=== PATIENT | male | born 1970 | race African-American/Black ===

== ENCOUNTER 2018-11-25 07:48 | Emergency (ER) | payer OTHER ==
[~2018-11-25] VITALS: Ht 182.9 cm; Wt 72.0 kg
[2018-11-25 07:50] VITALS: BP 107/61
== END 2018-11-25 11:39 | disposition left against medical advice (07) ==
LOC: ER 07:48
DX: H05.222 Edema of left orbit (principal); Y08.89XA Assault by other specified means, initial encounter; F17.200 Nicotine dependence, unspecified, uncomplicated
CPT/HCPCS: 99283

== ENCOUNTER 2018-12-01 23:37 | Emergency (ER) | payer OTHER ==
[~2018-12-01] VITALS: Ht 172.7 cm; Wt 73.0 kg
[2018-12-01 23:40] VITALS: BP 142/84
== END 2018-12-02 08:06 | disposition left against medical advice (07) ==
LOC: ER 23:37
DX: Z53.21 Procedure and treatment not carried out due to patient leaving prior to being seen by health care provider (principal); F17.200 Nicotine dependence, unspecified, uncomplicated

== ENCOUNTER 2019-12-13 19:58 | Inpatient (IN) | payer MEDICAID, OTHER ==
[~2019-12-13] VITALS: Ht 172.7 cm; Wt 74.8 kg
[2019-12-13] MEDS ORDERED: ASPIRIN 81MG TABLET PO ONE (22:45)
[2019-12-13 23:13] LABS: BASOPHILS % 0.9 % (0.0-2.0); EOSINOPHILS % 1.2 % (0.0-5.0); HEMATOCRIT. 38.2 % (42.0-52.0); HEMOGLOBIN. 12.6 g/dL (14.0-18.0); LYMPHOCYTES % 37.2 % (20.0-50.0); MEAN CORPUSCULAR HEMOGLOBIN 28.2 pg (28.0-32.0); MEAN CORPUSCULAR VOLUME 85.4 fL (80.0-94.0); MONOCYTES % 9.6 % (2.0-8.0); NEUTROPHILS % 51.1 % (40.0-76.0); PLATELET 472 x1000/uL (130-400); RED BLOOD CELL COUNT 4.48 mill/uL (4.7-6.1); RED CELL DISTRIBUTION WIDTH 19.5 % (11.6-14.6)
[2019-12-13 23:17] LABS: CHLORIDE 99 mEq/L (98-107)
[2019-12-14 10:00] VITALS: BP 106/83
[2019-12-14] MEDS ORDERED: HYDROCODONE/ACETAMINOPHEN 5/325MG TABLET PO PRN ×2 (10:00→15:15)
[2019-12-14] MEDS ORDERED: ONDANSETRON HCL 4MG/2ML INJ IV PRN (10:00)
[2019-12-14] MEDS ORDERED: ENOXAPARIN 40MG/0.4ML SYR SUBCUT SCH (10:15)
[2019-12-14 10:33] VITALS: BP 106/83
[2019-12-14] MEDS ORDERED: ATOR40TA70 PO (11:03)
[2019-12-14] MEDS ORDERED: LISI-186 PO (11:04)
[2019-12-14] MEDS ORDERED: AMIO100T4 PO (11:06)
[2019-12-14] MEDS ORDERED: CARV6.2548 PO (11:06)
[2019-12-14] MEDS ORDERED: ASPI-1497 PO (11:06)
[2019-12-14 12:00] VITALS: BP 121/75
[2019-12-14 12:13] LABS: BASOPHILS % 0.3 % (0.0-2.0); EOSINOPHILS % 1.4 % (0.0-5.0); HEMATOCRIT. 34.7 % (42.0-52.0); HEMOGLOBIN. 11.3 g/dL (14.0-18.0); MEAN CORPUSCULAR HEMOGLOBIN 27.7 pg (28.0-32.0); MEAN CORPUSCULAR VOLUME 84.9 fL (80.0-94.0); MEAN PLATELET VOLUME 6.9 fl (7.4-10.4); MONOCYTES % 10.8 % (2.0-8.0); NEUTROPHILS % 60.5 % (40.0-76.0); PLATELET 445 x1000/uL (130-400); RED BLOOD CELL COUNT 4.08 mill/uL (4.7-6.1); RED CELL DISTRIBUTION WIDTH 19.3 % (11.6-14.6)
[2019-12-14 12:28] LABS: CHLORIDE 103 mEq/L (98-107)
[2019-12-14 12:37] LABS: T4 FREE 1.11 ng/dL (0.76-1.46)
[2019-12-14] MEDS ORDERED: DIPHENHYDRAMINE 50MG/ML VIAL IV PRN (15:15)
[2019-12-14] MEDS ORDERED: ACETAMINOPHEN 325MG TABLET PO PRN (15:15)
[2019-12-14] MEDS ORDERED: ACETAMINOPHEN 650MG SUPP PR PRN (15:15)
[2019-12-14] MEDS ORDERED: IPRATROPIUM/ALBUTEROL 0.5-3(2.5)MG/3ML NEB HHN PRN (15:15)
[2019-12-14] MEDS ORDERED: DOCUSATE SODIUM 100MG CAPSULE PO PRN (15:15)
[2019-12-14] MEDS ORDERED: LORAZEPAM 2MG/ML CPJ IV PRN (15:15)
[2019-12-14] MEDS ORDERED: HYDRALAZINE 20MG/ML VIAL IV PRN (15:15)
[2019-12-14] MEDS ORDERED: CLONIDINE 0.1MG TABLET PO PRN (15:15)
[2019-12-14 15:39] LABS: CREATINE KINASE 392 IU/L (39-308)
[2019-12-14] MEDS ORDERED: MEDICATION NOT ON FORMULARY EA (Amiodarone HCl 200 MG) PO SCH (17:00)
[2019-12-14] MEDS: AMIODARONE HCL 200 MG TABLET PO SCH (17:20)
[2019-12-14 20:00] VITALS: BP_SYST 119; BP_SYST 125; BP_SYST 136; BP_DIAS 81; BP_DIAS 82; BP_DIAS 89
[2019-12-14] MEDS: CARVEDILOL 6.25 MG TABLET PO SCH (21:38)
[2019-12-14] MEDS: FAMOTIDINE 20MG TABLET PO SCH (21:38)
[2019-12-14 23:26] LABS: CREATINE KINASE 315 IU/L (39-308)
[2019-12-14 23:27] LABS: CREATINE KINASE MB FRACTION 1.1 ng/mL (0.5-3.6)
[2019-12-15] VITALS: BP 126/83
[2019-12-15 04:00] VITALS: BP 157/84
[2019-12-15 06:20] LABS: BASOPHILS % 0.5 % (0.0-2.0); EOSINOPHILS % 1.5 % (0.0-5.0); HEMATOCRIT. 35.8 % (42.0-52.0); HEMOGLOBIN. 11.6 g/dL (14.0-18.0); LYMPHOCYTES % 31.2 % (20.0-50.0); MEAN CORPUSCULAR HEMOGLOBIN 27.9 pg (28.0-32.0); MEAN CORPUSCULAR VOLUME 85.6 fL (80.0-94.0); MEAN PLATELET VOLUME 7.2 fl (7.4-10.4); MONOCYTES % 14.2 % (2.0-8.0); NEUTROPHILS % 52.6 % (40.0-76.0); PLATELET 436 x1000/uL (130-400); RED BLOOD CELL COUNT 4.18 mill/uL (4.7-6.1); RED CELL DISTRIBUTION WIDTH 19.5 % (11.6-14.6)
[2019-12-15 06:35] LABS: CHLORIDE 106 mEq/L (98-107)
[2019-12-15 06:50] LABS: HDL CHOLESTEROL 52 mg/dL (40-59); TOTAL IRON BINDING CAPACITY 448 ug/dL (250-450)
[2019-12-15 06:52] LABS: LDL CHOLESTEROL 68 mg/dL (5-100)
[2019-12-15 08:00] VITALS: BP 128/80
[2019-12-15] MEDS: ATORVASTATIN CALCIUM 40MG TABLET PO SCH (09:05)
[2019-12-15] MEDS: AMIODARONE HCL 200 MG TABLET PO SCH ×2 (09:05→16:54)
[2019-12-15] MEDS: ASPIRIN 81MG EC TABLET PO SCH (09:06)
[2019-12-15] MEDS: CARVEDILOL 6.25 MG TABLET PO SCH ×2 (09:06→20:21)
[2019-12-15 12:00] VITALS: BP 112/74
[2019-12-15] MEDS ORDERED: IOHEXOL-350 100 ML BOTTLE ONE (14:21)
[2019-12-15 16:00] VITALS: BP 112/83
[2019-12-15] MEDS: FERROUS SULFATE 325MG TABLET PO SCH (16:54)
[2019-12-15 17:41] LABS: *AMPHETAMINES SCREEN URINE NEGATIVE (NEGATIVE); *BARBITURATES SCREEN URINE NEGATIVE (NEGATIVE); *BENZODIAZEPINES SCREEN URINE NEGATIVE (NEGATIVE); *COCAINE SCREEN URINE NEGATIVE (NEGATIVE); METHADONE URINE SCREEN NEGATIVE (NEGATIVE)
[2019-12-15 17:42] LABS: CANNABINOID URINE SCREEN PRESUMTIVE POSITIVE (NEGATIVE); OPIATES URINE SCREEN NEGATIVE (NEGATIVE); PHENCYCLIDINE URINE SCREEN PRESUMTIVE POSITIVE (NEGATIVE)
[2019-12-15 20:00] VITALS: BP_SYST 123; BP_SYST 125; BP_SYST 138; BP_DIAS 79; BP_DIAS 82; BP_DIAS 88
[2019-12-15] MEDS: FAMOTIDINE 20MG TABLET PO SCH (20:21)
[2019-12-16] VITALS (8 sets, daily range): BP systolic 106–146; BP diastolic 68–117
[2019-12-16] MEDS: FERROUS SULFATE 325MG TABLET PO SCH ×3 (06:38→17:27)
[2019-12-16 06:53] LABS: BASOPHILS % 0.7 % (0.0-2.0); CHLORIDE 103 mEq/L (98-107); EOSINOPHILS % 2.7 % (0.0-5.0); HEMATOCRIT. 37.2 % (42.0-52.0); HEMOGLOBIN. 12.2 g/dL (14.0-18.0); LYMPHOCYTES % 43.1 % (20.0-50.0); MEAN CORPUSCULAR HEMOGLOBIN 28.1 pg (28.0-32.0); MEAN CORPUSCULAR VOLUME 85.8 fL (80.0-94.0); MEAN PLATELET VOLUME 7.6 fl (7.4-10.4); MONOCYTES % 10.3 % (2.0-8.0); NEUTROPHILS % 43.2 % (40.0-76.0); PLATELET 450 x1000/uL (130-400); RED BLOOD CELL COUNT 4.34 mill/uL (4.7-6.1); RED CELL DISTRIBUTION WIDTH 19.5 % (11.6-14.6)
[2019-12-16] MEDS: AMIODARONE HCL 200 MG TABLET PO SCH ×2 (09:18→17:27)
[2019-12-16] MEDS: CARVEDILOL 6.25 MG TABLET PO SCH ×2 (09:18→20:50)
[2019-12-16] MEDS: ASPIRIN 81MG EC TABLET PO SCH (09:18)
[2019-12-16] MEDS: ATORVASTATIN CALCIUM 40MG TABLET PO SCH (09:18)
[2019-12-16] MEDS: FAMOTIDINE 20MG TABLET PO SCH (20:50)
== END 2019-12-16 21:05 | disposition home or self-care (01) | DRG 48 ==
LOC: ER 19:58 → EDBEDREQ 12-14 01:55 → EDBEDREQTM 12-14 01:55 → 5WST 12-14 02:19 → EDBEDREQTM 12-14 02:21 → EDBEDREQ 12-14 02:21 → ENRESERV 12-14 07:44
PROVIDERS: ADMIT Internal Medicine; ATTEND Internal Medicine
DX: G90.8 Other disorders of autonomic nervous system (principal); I11.0 Hypertensive heart disease with heart failure; I42.9 Cardiomyopathy, unspecified; I50.42 Chronic combined systolic (congestive) and diastolic (congestive) heart failure; D50.9 Iron deficiency anemia, unspecified; E78.5 Hyperlipidemia, unspecified; I45.10 Unspecified right bundle-branch block; J44.9 Chronic obstructive pulmonary disease, unspecified
CPT/HCPCS: 36415; 70486; 71045; 71275; 73130; 80048; 80053; 80061; 80305; 80307; 82550; 82553; 83540; 83550; 83735; 83880; 84439; 84443; 84484; 85025; 85379; 93005; 93306; 93880; 93970; 99285; Q9967

== ENCOUNTER 2020-11-20 16:21 | Emergency (ER) | payer MEDICAID, OTHER ==
[~2020-11-20] VITALS: Ht 177.8 cm; Wt 82.0 kg
[~2020-11-20 16:21] MED LIST: AMIO100T4 PO; ASPI-1497 PO; ATOR40TA70 PO; CARV6.2548 PO; LISI-186 PO
[2020-11-20] MEDS ORDERED: SODIUM CHLORIDE 0.9% 1,000 ML IV ONE (17:15)
[2020-11-20 17:29] LABS: BASOPHILS % 0.5 % (0.0-2.0); HEMATOCRIT. 36.7 % (42.0-52.0); HEMOGLOBIN. 11.6 g/dL (14.0-18.0); LYMPHOCYTES % 44.2 % (20.0-50.0); MEAN CORPUSCULAR HEMOGLOBIN 26.2 pg (28.0-32.0); MEAN PLATELET VOLUME 7.7 fl (7.4-10.4); MONOCYTES % 7.4 % (2.0-8.0); NEUTROPHILS % 45.9 % (40.0-76.0); PLATELET 472 x1000/uL (130-400); RED BLOOD CELL COUNT 4.43 mill/uL (4.7-6.1); RED CELL DISTRIBUTION WIDTH 19.7 % (11.6-14.6)
[2020-11-20 17:33] LABS: CHLORIDE 103 mEq/L (98-107)
[2020-11-20 17:38] LABS: ETHANOL BLOOD 130 mg/dL
[2020-11-20 19:19] LABS: CLARITY URINE CLEAR (CLEAR); COLOR URINE YELLOW (YELLOW); KETONES URINE NEGATIVE (NEGATIVE); LEUKOCYTE ESTERASE URINE NEGATIVE (NEGATIVE); NITRITE URINE NEGATIVE (NEGATIVE); OCCULT BLOOD URINE NEGATIVE (NEGATIVE); PROTEIN URINE NEGATIVE (NEGATIVE); SPECIFIC GRAVITY URINE 1.012 (1.005-1.030); UROBILINOGEN URINE 0.2 E.U./dL (0.2-1.0)
[2020-11-20 19:30] LABS: *AMPHETAMINES SCREEN URINE PRESUMTIVE POSITIVE (NEGATIVE); *BARBITURATES SCREEN URINE NEGATIVE (NEGATIVE); *BENZODIAZEPINES SCREEN URINE NEGATIVE (NEGATIVE); *COCAINE SCREEN URINE NEGATIVE (NEGATIVE); METHADONE URINE SCREEN NEGATIVE (NEGATIVE)
[2020-11-20 19:31] LABS: CANNABINOID URINE SCREEN NEGATIVE (NEGATIVE); OPIATES URINE SCREEN NEGATIVE (NEGATIVE); PHENCYCLIDINE URINE SCREEN PRESUMTIVE POSITIVE (NEGATIVE)
[2020-11-20 23:25] VITALS: BP 120/77
== END 2020-11-20 23:29 | disposition home or self-care (01) ==
LOC: ER 16:21
DX: F16.10 Hallucinogen abuse, uncomplicated (principal); R41.82 Altered mental status, unspecified; F15.10 Other stimulant abuse, uncomplicated; F19.10 Other psychoactive substance abuse, uncomplicated; F17.200 Nicotine dependence, unspecified, uncomplicated; Z79.899 Other long term (current) drug therapy
CPT/HCPCS: 36415; 80053; 80305; 80320; 81003; 85025; 93005; 99284; J7030; G0480

== ENCOUNTER 2020-11-28 11:15 | Emergency (ER) | payer OTHER ==
[~2020-11-28] VITALS: Ht 177.8 cm; Wt 75.0 kg
[2020-11-28 11:58] LABS: BASOPHILS % 0.4 % (0.0-2.0); EOSINOPHILS % 2.6 % (0.0-5.0); HEMATOCRIT. 37.5 % (42.0-52.0); HEMOGLOBIN. 12.1 g/dL (14.0-18.0); LYMPHOCYTES % 33.8 % (20.0-50.0); MEAN CORPUSCULAR HEMOGLOBIN 27.1 pg (28.0-32.0); MEAN PLATELET VOLUME 7.1 fl (7.4-10.4); MONOCYTES % 14.5 % (2.0-8.0); NEUTROPHILS % 48.7 % (40.0-76.0); PLATELET 376 x1000/uL (130-400); RED BLOOD CELL COUNT 4.46 mill/uL (4.7-6.1); RED CELL DISTRIBUTION WIDTH 19.4 % (11.6-14.6)
[2020-11-28 12:05] LABS: CHLORIDE 101 mEq/L (98-107)
[2020-11-28] MEDS ORDERED: DEXTROSE 50% WATER 50ML SYRINGE IV ONE (12:30)
[2020-11-28 12:32] LABS: *AMPHETAMINES SCREEN URINE NEGATIVE (NEGATIVE); *BARBITURATES SCREEN URINE NEGATIVE (NEGATIVE)
[2020-11-28 12:33] LABS: *BENZODIAZEPINES SCREEN URINE NEGATIVE (NEGATIVE); *COCAINE SCREEN URINE NEGATIVE (NEGATIVE); METHADONE URINE SCREEN NEGATIVE (NEGATIVE); OPIATES URINE SCREEN NEGATIVE (NEGATIVE); PHENCYCLIDINE URINE SCREEN PRESUMTIVE POSITIVE (NEGATIVE)
[2020-11-28 12:34] LABS: CANNABINOID URINE SCREEN NEGATIVE (NEGATIVE)
[2020-11-28] MEDS ORDERED: POTASSIUM CHLORIDE 20MEQ TABLET SR PO NR (15:00)
[2020-11-28] MEDS ORDERED: DEXTROSE 5% WATER 1,000 ML IV ONE (15:15)
[2020-11-28] MEDS ORDERED: DEXTROSE 50% WATER 50ML SYRINGE IV NR (17:30)
[2020-11-28 22:30] VITALS: BP 129/82
== END 2020-11-28 22:45 | disposition short-term general hospital (02) ==
LOC: ER 11:33 → CANBEDREQ 23:51
DX: E16.1 Other hypoglycemia (principal); R07.89 Other chest pain; E87.6 Hypokalemia; I10 Essential (primary) hypertension; E78.00 Pure hypercholesterolemia, unspecified; F20.9 Schizophrenia, unspecified; F12.10 Cannabis abuse, uncomplicated; F15.10 Other stimulant abuse, uncomplicated; F16.10 Hallucinogen abuse, uncomplicated; Z59.0 Homelessness; Z79.82 Long term (current) use of aspirin
CPT/HCPCS: 36415; 71045; 80053; 80305; 82962; 83880; 84484; 85025; 93005; 96365; 96366; 96375; 96376; 99285; J7070; Z7610

== ENCOUNTER 2021-02-03 07:10 | Emergency (ER) | payer MEDICAID, OTHER ==
[~2021-02-03] VITALS: Ht 177.8 cm; Wt 75.0 kg
[2021-02-03] MEDS ORDERED: LIDOCAINE HCL 1% 20ML VIAL (Pyxis) INJ INFIL ONE (08:15)
[2021-02-03] MEDS ORDERED: MORPHINE SULFATE 4 MG/ML CPJ (NOT FOR IM USE) IV ONE (08:15)
[2021-02-03] MEDS ORDERED: TETANUS, DIPHTHERIA, PERTUSSIS VAC/PF 0.5ML (>7YR OLD) IM ONE (08:15)
[2021-02-03 08:30] LABS: BASOPHILS % 0.5 % (0.0-2.0); EOSINOPHILS % 1.1 % (0.0-5.0); HEMATOCRIT. 34.5 % (42.0-52.0); HEMOGLOBIN. 10.9 g/dL (14.0-18.0); LYMPHOCYTES % 16.9 % (20.0-50.0); MEAN CORPUSCULAR HEMOGLOBIN 26.4 pg (28.0-32.0); MEAN CORPUSCULAR VOLUME 83.8 fL (80.0-94.0); MEAN PLATELET VOLUME 7.2 fl (7.4-10.4); MONOCYTES % 8.3 % (2.0-8.0); NEUTROPHILS % 73.2 % (40.0-76.0); PLATELET 416 x1000/uL (130-400); RED BLOOD CELL COUNT 4.12 mill/uL (4.7-6.1); RED CELL DISTRIBUTION WIDTH 18.3 % (11.6-14.6)
[2021-02-03 08:41] LABS: ETHANOL BLOOD < 10 mg/dL
[2021-02-03 08:47] LABS: CHLORIDE 105 mEq/L (98-107)
[2021-02-03 17:25] VITALS: BP 129/88
== END 2021-02-03 17:32 | disposition short-term general hospital (02) ==
LOC: ER 07:54
DX: S01.412A Laceration without foreign body of left cheek and temporomandibular area, initial encounter (principal); F31.9 Bipolar disorder, unspecified; E78.00 Pure hypercholesterolemia, unspecified; F20.9 Schizophrenia, unspecified; R55 Syncope and collapse; Z79.899 Other long term (current) drug therapy; W18.39XA Other fall on same level, initial encounter; Y93.89 Activity, other specified; Y92.89 Other specified places as the place of occurrence of the external cause; Y99.8 Other external cause status
CPT/HCPCS: 12011; 36415; 70450; 71045; 80053; 80320; 82962; 83735; 83880; 84484; 85025; 86850; 86900; 86901; 93005; 96374; 99285; A4217; J2270; J3490; G0480